=== PATIENT | female | born 1945 | race Caucasian/White ===

== ENCOUNTER 2017-07-01 16:21 | Emergency (ER) | payer OTHER ==
[~2017-07-01] VITALS: Ht 149.9 cm; Wt 54.6 kg
[~2017-07-01 16:21] MED LIST: ALLEGRA180 MG PO; AMLODIPINE BESYL5 MG PO; ANTACID GELATI1 EACH PO; ASCORBIC ACID500 M3 PO; BIOTIN 5000MCG PO; CALCIUM 600+D1 EACH PO; CELEXA40 MG PO; CITALOPRAM HBR20 M1 G-TUBE; COLACE100 MG PO; COMBIVENT RESPIM4 GM IH; CYANOCOBALAM1000 MCG PO; DILAUDID2 MG PO; DOCUSATE SODIU100 MG PO; ESTER-C 1,0001 EACH PO; FERROUS SULFAT325 MG PO; FISH OIL 1,0001 EAC7 PO; FISH OIL 1,2001 EAC3 PO; FISH OIL300 MG PO; FLAGYL500 MG PO; FLEXERIL5 MG PO; FOLIC ACID1 MG PO; FOSINOPRIL SODI20 M1 PO; HYDROCHLOROTH12.5 M3 PO; LECITHIN1200 MG PO; LOPRESSOR25 MG PO; Levaquin PO; MELOXICAM7.5 MG PO; MERIBIN5 MG PO; METAXALONE800 MG PO; MONOPRIL20 MG PO; PERCOCET 5/31 TABLET PO; PRILOSEC20 MG PO; RECLAST5 MG/100 M IV; SOYA LECITHIN1200 MG PO; THERAGRAN1 TABLET PO; VENTOLIN HFA18 GM IH; VITAMIN B-125000 MC1 PO; VITAMIN C1000 MG PO; VITAMIN D2000 UNIT PO; VITAMIN D32000 UNI1 PO; [UNRECOGNIZED DRUG - OTHER] PO
[2017-07-01 19:40] VITALS: BP 152/90
== END 2017-07-01 19:40 | disposition home or self-care (01) ==
LOC: EME 16:21
DX: F12.10 Cannabis abuse, uncomplicated (principal); Z04.6 Encounter for general psychiatric examination, requested by authority; Z88.0 Allergy status to penicillin; Z87.891 Personal history of nicotine dependence
CPT/HCPCS: 99281; 99285; J1630; J2250